=== PATIENT | male | born 1960 | race Hispanic/Latino ===

== ENCOUNTER 2019-12-14 06:51 | Day surgery (SDC) | payer BC ==
[~2019-12-14] VITALS: Ht 170.2 cm; Wt 119.3 kg
[2019-12-14] VITALS (7 sets, daily range): BP systolic 129–166; BP diastolic 85–98
[~2019-12-14 06:51] MED LIST: SODIUM CHLORIDE 0.9% 1000ML 1,000 ML IV ONE
[2019-12-14] MEDS ORDERED: AMLO-259 PO (08:51)
[2019-12-14] MEDS ORDERED: DULO60CA44 PO (08:51)
[2019-12-14] MEDS ORDERED: TRAM1TAB PO (08:51)
[2019-12-14] MEDS ORDERED: METF-444 PO (08:51)
[2019-12-14] MEDS ORDERED: HYDR25TA PO (08:51)
[2019-12-14] MEDS ORDERED: PROPOFOL 10 MG/ML 20ML VIAL IV ONE (09:04)
[2019-12-14] MEDS ORDERED: MIDAZOLAM HCL 1 MG/ML 2ML VIAL ONE (09:11)
== END 2019-12-14 10:12 | disposition home or self-care (01) ==
LOC: ENDO 06:51 → DAH 06:51 → ENDO 10:12
PROVIDERS: ATTEND Internal Medicine Gastroenterology
DX: K59.00 Constipation, unspecified (principal); K63.5 Polyp of colon; K60.2 Anal fissure, unspecified; I10 Essential (primary) hypertension; E78.5 Hyperlipidemia, unspecified; F41.9 Anxiety disorder, unspecified; F32.9 Major depressive disorder, single episode, unspecified; G47.00 Insomnia, unspecified; E11.9 Type 2 diabetes mellitus without complications; F17.210 Nicotine dependence, cigarettes, uncomplicated; Z72.89 Other problems related to lifestyle; Z79.899 Other long term (current) drug therapy; Z79.84 Long term (current) use of oral hypoglycemic drugs; Z82.49 Family history of ischemic heart disease and other diseases of the circulatory system; Z83.3 Family history of diabetes mellitus; Z82.5 Family history of asthma and other chronic lower respiratory diseases
CPT/HCPCS: 45385; 82948 ×2; A4215; A4221; A4222; A4223; A4606; A4615; A4663; J2250; J2704; J7030

== ENCOUNTER 2019-12-16 18:22 | Emergency (ER) | payer BC ==
[~2019-12-16 18:22] MED LIST changes: +AMLO-259 PO; +DULO60CA44 PO; +HYDR25TA PO; +METF-444 PO; -SODIUM CHLORIDE 0.9% 1000ML 1,000 ML IV ONE; +TRAM1TAB PO
[2019-12-16] MEDS ORDERED: LIDOCAINE HCL 2% VISCOUS 15 ML UDCUP ONE (19:19)
== END 2019-12-16 19:57 | disposition home or self-care (01) ==
LOC: EDH 18:22
DX: K60.2 Anal fissure, unspecified (principal); E11.9 Type 2 diabetes mellitus without complications; I10 Essential (primary) hypertension; F41.9 Anxiety disorder, unspecified; Z98.890 Other specified postprocedural states
CPT/HCPCS: 99282